=== PATIENT | male | born 1990 | race African-American/Black ===

== ENCOUNTER 2020-01-15 17:05 | Emergency (ER) | payer SELFPAY ==
[2020-01-15 17:21] VITALS: BP 153/79; PULSE 80; RESP 18; TEMP 37.6; O2SAT 99
[2020-01-15 17:29] VITALS: BP 153/79; PULSE 80; RESP 18; TEMP 37.6; O2SAT 99
--- NOTE | 2020-01-15 17:39 | ED.MALEGU ---
HPI - Male Genitourinary General Chief complaint: Urogenital-Male Stated complaint: STD testing Time Seen by Provider: 01/15/20 17:20 Source: patient Mode of arrival: ambulatory Limitations: no limitations History of Present Illness HPI Narrative: Chemo Pickett is a 29 yo male with no PMH comes to express care with complaints of discharge from his penis that started today. States that he is in a single partnership and has had not had unprotected sex with outside partners; that he has pain on urination, has discharge even without urination. Discharge started today. Denies any drug allergies Related Data Allergies Allergy/AdvReac Type Severity Reaction Status Date / Time No Known Allergies Allergy Mild Verified 11/23/07 16:27 Review of Systems Review of Systems: Narrative: CONSTITUTIONAL: Denies fever, chills, sweats. EYES: Denies visual changes, redness, discharge. ENT: Denies rhinorrhea, congestion, sore throat, otalgia. CARDIOVASCULAR: Denies chest pain, palpitations, edema. RESPIRATORY: Denies dyspnea, wheezing, cough GASTROINTESTINAL: Denies abdominal pain, nausea, vomiting, diarrhea. GENITOURINARY: Denies dysuria, hematuria, has penile discharge SKIN: Denies rash or itching. NEUROLOGIC: Denies numbness, or focal weakness. PSYCHIATRIC: Denies anxiety or depression. PMFSH Past Medical History Medical History (Updated 01/15/20 @ 17:54 by Kay Catalan CNP) No acute medical problems Family History Family History (Updated 01/15/20 @ 17:50 by Kay Catalan CNP) Mother Hypertension Lung cancer Social History Social History (Updated 01/15/20 @ 17:50 by Kay Catalan CNP) Smoking status: Former smoker Alcohol intake: never Gender identity (if verbalized by the patient): Male Comments At time of signature, I agree with nursing past medical, surgical, social and family history. There is no relevant family history pertinent to the presenting complaint. BP elevated. follow up with pcp Exam Narrative: Exam Narrative: GENERAL: This is a well-nourished, well-developed patient, in mild distress. HEAD: normocephalic, atraumatic. EYES:Sclera clear/white. Vision is grossly intact. EARS: External ears normal. Hearing grossly intact. NOSE: External nose normal without nasal discharge, nares without redness, no rhinorrhea. THROAT: Mucous membranes moist, NECK: Neck supple, CARDIOVASCULAR: Regular rate and rhythm without murmurs, gallops, or rubs. RESPIRATORY: Clear to auscultation. Breath sounds equal bilaterally. No wheezes, rales, or rhonchi. GASTROINTESTINAL: Abdomen soft, Genitourinary: white discharge SKIN: warm, intact with no suspicious lesions or rash, good texture and turgor. NEURO: awake, alert, and oriented to person, place and time. There were no obvious focal neurologic abnormalities. Steady gait EXTREMITIES: Normal range of motion. BACK: Nontender without deformity Course Course Emergency Course: Came to express care with penile discharge Urine collected UA dip shows UTI, sent for culture, given Rocephin and Zithromax for possible STD. Prescription for Flagyl and will be called by site if trichomoniasis is positive, 3 days Cipro 500 twice daily for UTI as patient is febrile Follow-up with PCP Vital Signs Vital signs: Vital Signs Temperature 99.7 F H 01/15/20 17:21 Pulse Rate 80 01/15/20 17:21 Respiratory Rate 18 01/15/20 17:21 Blood Pressure 153/79 H 01/15/20 17:21 Pulse Oximetry 99 01/15/20 17:21 Temperature 99.7 F H 01/15/20 17:29 Pulse Rate 80 01/15/20 17:29 Respiratory Rate 18 01/15/20 17:29 Blood Pressure 153/79 H 01/15/20 17:29 Pulse Oximetry 99 01/15/20 17:29 MDM - Male Genitourinary Differential Diagnosis Differential diagnosis: Likely urinary tract infection, urethritis and other (STD) Lab Data Labs: Urine Glucose Negative Reference Range: Negat
[2020-01-15] MEDS: AZITHROMYCIN 250 MG TABLET 1000 MG PO (17:52)
[2020-01-15] MEDS: LIDOCAINE HCL 1% LOCAL INJ 20 ML VIAL IM (17:54)
[2020-01-15] MEDS: cefTRIAXone 250 MG VIAL IM (17:54)
== END 2020-01-15 18:25 | disposition home or self-care (01) ==
PROVIDERS: Emergency Provider Nurse Practitioner
DX: Z20.2 Contact with and (suspected) exposure to infections with a predominantly sexual mode of transmission (principal); N30.01 Acute cystitis with hematuria; Z87.891 Personal history of nicotine dependence
CPT/HCPCS: 81003; 87086; 87491; 87591; 87661; 96372; 99213; A9270; G0463; J0696

== ENCOUNTER 2022-07-25 16:36 | Emergency (ER) | payer OTHER, SELFPAY ==
--- NOTE | ~2022-07-25 | XR_ITS ---
EXAMINATION: XR chest 2V DATE: 07/25/2022 17:08 INDICATION: Cough and left-sided abdominal pain TECHNIQUE: PA and lateral views of the chest were obtained. COMPARISON: None FINDINGS: The lungs are clear with no focal airspace opacities, pulmonary edema, pleural effusion or pneumothor ax. The cardiomediastinal silhouette is normal. Mild thoracic spondylosis IMPRESSION: 1. No acute cardiopulmonary disease. Reviewed, dictated and finalized at location A.
--- NOTE | 2022-07-25 16:38 | ED.URI ---
HPI - URI/Sore Throat General Chief Complaint: Upper Respiratory Infection Stated Complaint: Pain in side; Headaches; Cough; No appetite Time Seen by Provider: 07/25/22 16:37 Source: patient Mode of arrival: ambulatory Limitations: no limitations History of Present Illness HPI Narrative: Matt is a 32-year-old male patient presenting to the clinic today with complaints of left chest discomfort when coughing, rash headache, cough, nausea, and decreased appetite x 1 days. He reports he has been coughing so hard that it is causing his head to hurt. States that he is able to eat and drink and keep things down however he does have some nausea. Has had some body aches without known fever. Has not taken at home COVID test. No known sick contacts. States he he developed a rash yesterday after being out in the [place]. States that the rash is very itchy without pain. MD elicited complaint: cough, nasal congestion and other (Headache, nausea, decreased appetite) Related Data Allergies Allergy/AdvReac Type Severity Reaction Status Date / Time No Known Allergies Allergy Mild Verified 07/25/22 16:55 Review of Systems Review of Systems: Pertinent positives per HPI. Patient denies any fever, chills, rash, visual changes, dizziness, shortness of breath, chest pain, palpitations, nausea, vomiting, diarrhea, constipation, abdominal pain, or any urinary issues. [facility] Past Medical History Medical History (Updated 07/25/22 @ 17:19 by Anshul Pierson APRN) No acute medical problems Family History Family History Mother Hypertension Lung cancer Social History Social History Smoking status: Former smoker Alcohol intake: never Gender identity (if verbalized by the patient): Male Comments At the time of my signature, I reviewed and agree with the nursing past medical, surgical, social, and family history. There is no relevant family history pertinent to the patient complaint. Exam Narrative: General: Well-developed, well nourished, in no apparent distress Head: Normocephalic, atraumatic Eyes: Pupils equally round and reactive to light bilaterally, EOM intact, sclera and conjunctive clear, no discharge, lids normal Ears: TMs intact and clear, ear canals clear, no drainage, grossly hearing normal. Nose: Nares patent, no discharge, no inflammation, no sinus tenderness. Mouth: Oral pharynx without lesions or masses, good dentition, MMM. Neck: Supple, trachea midline, no enlargement of anterior or posterior cervical nodes, no thyroid masses or goiter palpable. Cardio: Regular rate and rhythm, s1 and s2 normal, no murmur appreciated. Resp: Faint expiratory wheezing, no rhonchi, rales, wheezing or rubs Integumentary: [place], warm, and dry, intact without lesion, red raised blistery rash to the left lower lateral chest wall Course Course Emergency Course: Portions of this record may have been created with voice recognition software. Level of Care: Express Care Visit Vital Signs Vital signs: Vital signs reviewed MDM - URI/Sore Throat MDM Narrative Medical decision making narrative: At the time of visit patient is resting comfortably on the exam table. Chest x-ray, influenza, and COVID testing were performed in the clinic today. Chest x-ray was negative for any sign pneumonia. COVID and flu test were negative. I suspect patient has bronchitis with the poison [place]ipe dermatological rash. Will send in prescription for prednisone, albuterol inhaler, Tessalon Perles, and triamcinolone cream Differential Diagnosis Differential diagnosis: Likely upper respiratory infection, sinusitis, viral infection, bronchitis, influenza, pharyngitis and other (COVID) Discharge Plan Discharge Clinical Impression: Allergic dermatitis due to poison [place], Bronchitis Patient Disposition: Home, Self-
[2022-07-25 16:45] VITALS: BP 137/86; PULSE 66; RESP 16; TEMP 37.6; O2SAT 100
== END 2022-07-25 17:22 | disposition home or self-care (01) ==
LOC: EXPCOLL 16:41
PROVIDERS: Emergency Provider Nurse Practitioner Family
DX: J40 Bronchitis, not specified as acute or chronic (principal); L23.7 Allergic contact dermatitis due to plants, except food; Z20.822 Contact with and (suspected) exposure to COVID-19; Z87.891 Personal history of nicotine dependence
CPT/HCPCS: 71046; 87426; 87804; 99213; C9803; G0463